=== PATIENT | male | born 1960 | race Caucasian/White ===

== ENCOUNTER 2016-10-29 13:38 | Inpatient (IN) | payer MEDICARE, OTHER ==
[~2016-10-29] VITALS: Ht 177.8 cm; Wt 70.3 kg
[2016-10-30] MEDS ORDERED: TRAM50TA PO (12:09)
[2016-10-30] MEDS ORDERED: HYDR200T3 PO (12:09)
[2016-10-30] MEDS ORDERED: NAPR500T PO (12:10)
[2016-11-06] MEDS ORDERED: ceFAZolin 2 GM PREMIX 50 ML ONE (09:13)
[2016-11-06] MEDS ORDERED: GENTAMICIN SULFATE 80 MG/2 ML VIAL ONE (09:13)
[2016-11-06] MEDS ORDERED: BUPIVACAINE/EPINEPHRINE 0.25% PF 30 ML VIAL ONE (09:13)
[2016-11-06] MEDS ORDERED: VANCOMYCIN HCL 1000 MG VIAL ONE (11:00)
[2016-11-06] MEDS ORDERED: SODIUM CHLOR 0.9% 250 ML INJ 250 ML ONE (11:00)
[2016-11-06 11:15] VITALS: BP 142/94; PULSE 80; RESP 20; TEMP 98.8; O2SAT 96
[2016-11-06] MEDS ORDERED: LACTATED RINGER'S 1000 ML IV SCH (11:45)
[2016-11-06] MEDS ORDERED: SODIUM CHLORID 0.9% 500 ML IV SCH (11:45)
[2016-11-06] MEDS ORDERED: INSULIN HUMAN REGULAR 1,000 UNITS/10 ML VIAL SQ PRN (11:45)
[2016-11-06] MEDS ORDERED: METOPROLOL TARTRATE 25 MG TAB PO PRN (11:45)
[2016-11-06] MEDS ORDERED: PROPOFOL 200 MG/20 ML AMP IV ONE (12:00)
[2016-11-06] MEDS ORDERED: PHENYLEPH/NS 1000 MCG/10 ML SYR IV ONE (12:00)
[2016-11-06] MEDS ORDERED: LACTATED RINGER'S 1000 ML INJ 1,000 ML IV ONE (12:00)
[2016-11-06] MEDS ORDERED: ONDANSETRON HCL 4 MG/2 ML VIAL IV PUSH ONE (12:00)
[2016-11-06] MEDS ORDERED: ePHEDrine/NS 25 MG/5 ML SYR IV ONE (12:00)
[2016-11-06] MEDS ORDERED: ACETAMINOPHEN 1000 MG/100 ML VIAL IV ONE (12:01)
[2016-11-06] MEDS ORDERED: FAMOTIDINE 20 MG/2 ML VIAL ONE (12:01)
[2016-11-06] MEDS ORDERED: fentaNYL CITRATE 250 MCG/5 ML AMP ONE ×2 (12:01→13:27)
[2016-11-06] MEDS ORDERED: MIDAZOLAM HCL 2 MG/2 ML VIAL ONE (12:02)
[2016-11-06] MEDS ORDERED: KETAMINE HCL 500 MG/5 ML VIAL ONE (12:02)
[2016-11-06] MEDS ORDERED: DEXAMETHASONE SOD PHOS 4 MG/ML VIAL ONE (12:02)
[2016-11-06] MEDS ORDERED: HYDROmorphone HCL PF 2 MG/ML VIAL ONE (13:27)
[2016-11-06] MEDS ORDERED: LACTATED RINGER'S 1000 ML INJ 1,000 ML IV SCH (14:05)
[2016-11-06] MEDS ORDERED: ALUMINUM/MAGNESIUM/SIMETH 30 ML CUP PO PRN ×2 (14:15→17:00)
[2016-11-06] MEDS ORDERED: SODIUM CHLORIDE 0.9% FLUSH 5 ML FLUSH IVF PRN ×2 (14:15→17:00)
[2016-11-06] MEDS ORDERED: NALOXONE HCL 0.4 MG/ML AMP IV PRN ×2 (14:15→17:00)
[2016-11-06] MEDS ORDERED: SODIUM CHLORIDE 0.9% FLUSH 5 ML FLUSH IVF SCH (14:15)
[2016-11-06] MEDS ORDERED: ACETAMINOPHEN/HYDROcodone 325 MG/5 MG TAB PO PRN ×2 (14:15)
[2016-11-06] MEDS ORDERED: PROMETHAZINE INJ 25 MG/ML VIAL IM PRN ×2 (14:15→17:00)
[2016-11-06] MEDS ORDERED: ONDANSETRON HCL 4 MG/2 ML VIAL IV PRN ×2 (14:15→17:00)
[2016-11-06] MEDS ORDERED: MORPHINE SULFATE 4 MG/ML INJ IV PUSH PRN ×2 (14:15→17:00)
[2016-11-06] MEDS ORDERED: Post-op Orders (for Pharmacy) MISC XX ONE ×2 (14:15→17:00)
[2016-11-06] MEDS ORDERED: ACETAMINOPHEN/HYDROcodone 325 MG/7.5 MG TAB PO PRN (17:00)
--- NOTE | 2016-11-06 17:10 | HHI.PR ---
Immediate Post Op Note Procedure Date: Nov 06, 2016 Pre Op Diagnosis: C4-5 ODC,SS; C5-6 ODC,SS,SCE; C6-7 ODC,SS CM with mick UE weakness DDD,OA Post Op Diagnosis: Same Surgeon: Carlos Baptiste MD Structural Steel Shop Supervisor(s): Germania Hudson PA-C Procedure: C4-5,C5-6,C6-7 AIF,ACC,ASI Complications: None Specimen(s) removed: None Estimated blood loss: 250cc for entire case Anesthesia: General Patient to: PACU Patient Condition: Good Implant/Devices: SEE IMPLANT LOG (if applicable) Carlos Baptiste MD Nov 06, 2016 17:10
[2016-11-06] MEDS ORDERED: DO NOT ADM ANY ANTICOAGULANT DRUGS XX PRN (17:13)
--- NOTE | 2016-11-06 17:22 | PD.OP ---
cc: Carlos Baptiste MD; Lorenzo Baptiste MD Operative Report Date of Surgery: Nov 06, 2016 Preoperative Diagnosis: Osteophyte disc complex C3 4 5, C5 6, C6 7. Cervical spinal stenosis C5 6 and C6 7. 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 Cervical radiculopathy, bilateral, right greater than left. Postoperative Diagnosis: Same Procedure: Anterocervical discectomy decompression and bilateral foraminotomies, C4 5. Anterior cervical discectomy decompression and bilateral foraminotomies, C5 6. Anterior cervical discectomy decompression and bilateral foraminotomy, C6 7. Left anterior iliac crest bone graft Anesthesia: Gen. Surgeon: Lorenzo Baptiste Project Development Manager(s): MIKEY Mendoza Operation and Findings: EBL: 100 cc INDICATIONS: Patient is a 56-year-old male with significant neck and arm pain. Investigative studies shows evidence of myelopathic features. There is evidence of OPLL at C5 6 and C6 7 with ossification of either the posterior longitudinal ligament or a disc herniation or both. The patient has a significant bilateral foraminal stenosis at both levels. The C4 5 level is not as involved but there is an instability at that level associated with an osteophyte disc complex. This patient despite conservative care has. This patient now presents for surgical treatment NOTE: Should MIKEY Mendoza was present for the entire surgical procedure as my presser first. In my medical opinion her skill and care was necessary for proper management of this patient PROCEDURE: The patient was brought to the operating room and anesthetized in the supine position. This patient was positioned supine on the radiolucent table. All pressure points were protected in the anterior cervical spine and iliac crest was scrubbed with alcohol followed by Hibiclens followed by ChloraPrep. A timeout was done and antibiotics were given within 1 hour time window. Lateral radiographic images were used identifying the proper level. A right anterior incision was made in line with skin creases. The platysma was opened in line with the incision. Deep dissection continued in the interval between the carotid sheath and the esophagus. The longus-coli muscles were lifted on both sides and retractors were positioned allowing good exposure. Lateral radiographic images were used to identify the proper level. [place] style interosseous pins were placed at C4 and 5 allowing exposure to that level. The microscope was rolled into the field. A total discectomy was accomplished and posterior osteophytes were removed. The posterior longitudinal ligament and annulus was taken down. Bilateral foraminotomies were accomplished. The endplates were squared up anticipating later bone grafting. A blunt probe could be placed out each foramen without evidence of nerve root compromise. The C4 pin was placed down to C6. An anterior exposure was accomplished. We performed a total discectomy with excision of the posterior annulus and posterior longitudinal ligament. Bilateral foraminotomies were accomplished. Osteophytes were removed. The endplates were squared up anticipating later bone grafting. A blunt probe could be placed out each foramen without evidence of nerve root compromise. The C5 pin was placed down to C7. An anterior exposure was accomplished. We performed a total discectomy with excision of the posterior annulus and posterior longitudinal ligament. Bilateral foraminotomies were accomplished. Osteophytes were removed. The endplates were squared up anticipating later bone grafting. A blunt probe could be placed out each foramen without evidence of nerve root compromise. The left iliac crest was approached. A small stab incision was made allowing percutaneous access to the anterior iliac crest. Multiple cores of cancellous bone were harvested and taken to the back table to be used for later bone grafting. The wound was irrigated anesthetized and closed with 4-0 Vicryl followed by Dermabond. The case was turned over to Dr. Carlos Baptiste for fusion and instrumentation per his dictation. FINDINGS: There was evidence of a significant osteophyte disc complex at C4 5. Bilateral foraminal stenosis was noted. At C5 6 there was significant ossification more to the right than to the left with evidence of either a calcified disc herniation or that in combination with OPLL. This created a high -grade stenosis within the canal and foraminal stenosis. At the C6 7 level there very similar finding was noted. It was not as severe. At the end of the procedure, each level was decompressed nicely and a blunt probe could be placed out each foramen without evidence of nerve root compromise NOTE: This surgery was performed in 2 parts. The first part was the neurosurgical decompression performed under the variable power stereo microscope by the undersigned in addition to the bone graft. The second portion of the surgery will be performed by the orthopedic spine component by co -surgeon, Dr. Carlos Baptiste for the anterior fusion with interbody cage and anterior plate. The skill of 2 surgeons was necessary to perform distinct separate procedural services as dictated above and dictated in the following operative note by Dr. Carlos Baptiste. Lorenzo Baptiste MD Nov 06, 2016 17:22
[2016-11-06] MEDS: LACTATED RINGER'S 1000 ML INJ 1,000 ML IV SCH (17:32)
--- NOTE | 2016-11-06 17:40 | RADRPT ---
EXAM DATE/TIME: 11/06/2016 16:18 [facility] COMPARISON: No previous studies available for comparison. INDICATIONS : Neck pain MEDICAL HISTORY : None. SURGICAL HISTORY : None. ENCOUNTER: Initial ACUITY: 1 day PAIN SCORE: Non-responsive. LOCATION: C- spine FINDINGS: Two projection examination was performed. The patient had an anterior cervical fusion from what appea rs to be C4-C7. On the AP film the plate appears to be within midline CONCLUSION: Multilevel cervical fusion as described above Toney Lepe MD on November 06, 2016 at 17:37 Board Certified Radiologist. This report was verified electronically.
[2016-11-06] MEDS: HYDROXYCHLOROQUINE SULFATE 200 MG TAB PO SCH (18:00)
[2016-11-06 20:00] VITALS: BP 141/91; PULSE 97; RESP 18; TEMP 98.6; O2SAT 95
[2016-11-06] MEDS ORDERED: ZOLPIDEM TARTRATE 5 MG TAB PO PRN ×2 (21:00)
[2016-11-06] MEDS: SODIUM CHLORIDE 0.9% FLUSH 5 ML FLUSH IVF SCH (21:54)
[2016-11-06] MEDS: ACETAMINOPHEN/HYDROcodone 325 MG/7.5 MG TAB PO PRN (23:43)
[2016-11-07] VITALS: BP 148/92; PULSE 96; RESP 20; TEMP 98.3; O2SAT 98
[2016-11-07 03:59] VITALS: BP 171/79; PULSE 84; RESP 18; TEMP 98.3; O2SAT 98
[2016-11-07 04:00] VITALS: BP 178/79; PULSE 84; RESP 18; TEMP 98.3; O2SAT 98
[2016-11-07] MEDS: LACTATED RINGER'S 1000 ML INJ 1,000 ML IV SCH (05:27)
--- NOTE | 2016-11-07 07:07 | PD.ORT.PN ---
Subjective Subjective Remarks pt states he is doing well seen with his pre-op pain is improved, arm pain is improved Objective Vitals Vital Signs Date Time Temp Pulse Resp B/P Pulse Ox O2 Delivery O2 Flow Rate FiO2 11/07/16 03:59 98.3 84 18 171/79 98 11/07/16 00:00 98.3 96 20 148/92 98 11/06/16 20:00 98.6 97 18 141/91 95 11/06/16 18:00 98.0 105 17 140/91 97 Nasal Cannula 2 11/06/16 17:45 99 19 136/79 97 Nasal Cannula 2 11/06/16 17:30 93 13 120/68 95 Nasal Cannula 4 11/06/16 17:15 91 17 112/77 89 Simple Mask 6 11/06/16 17:05 98.2 84 19 135/76 96 Nasal Cannula 2 11/06/16 11:15 98.8 80 20 142/94 96 I/O 11/06/16 11/06/16 11/06/16 11/07/16 11/07/16 11/07/16 07:00 15:00 23:00 07:00 15:00 23:00 Intake Total 2540 ml 480 ml Output Total 1590 ml 1800 ml Balance 950 ml -1320 ml Intake Oral 240 ml 480 ml Other 2300 ml Output Urine Total 900 ml 1800 ml Drainage Total 40 ml 0 ml Estimated Blood Loss 300 ml Other 350 ml # Bowel Movements 0 0 Objective Remarks seen by Dr. Carlos Baptiste Villas collar in place dressing dry and intact motor is +5/5 to UE except right elbow flexion and shoulder abduction 3/5, right wrist dorsiflexion 4/5, left shoulder abduction and elbow flexion 3.5/5, hoffmans improved Assessment & Plan Assessment and Plan POD # 1 s/p C4-7 ACDF Villas collar x 2 months orthopedically stable discharge today norco 7.5mg rx in chart Germania Hudson Nov 07, 2016 07:07
[2016-11-07] MEDS: ACETAMINOPHEN/HYDROcodone 325 MG/7.5 MG TAB PO PRN ×2 (07:41→13:16)
[2016-11-07] MEDS: SODIUM CHLORIDE 0.9% FLUSH 5 ML FLUSH IVF SCH (07:41)
[2016-11-07] MEDS: HYDROXYCHLOROQUINE SULFATE 200 MG TAB PO SCH ×2 (07:41→13:14)
[2016-11-07 08:22] VITALS: BP 128/87; PULSE 82; RESP 16; TEMP 98.5; O2SAT 94
[2016-11-07] MEDS ORDERED: HYDR-3288 PO (08:57)
[2016-11-07] MEDS ORDERED: MULTIVITAMINS/MINERALS THERAPEUTIC TAB PO SCH ×2 (09:00)
[2016-11-07 09:51] VITALS: O2SAT 96
[2016-11-07 12:40] VITALS: BP 112/60; PULSE 70; RESP 16; TEMP 98.1; O2SAT 97
--- NOTE | 2016-11-07 14:12 | MP ---
cc: ALYX MCBRIDE MD DATE OF SURGERY: 11/06/2016 PREOPERATIVE DIAGNOSIS: 1. C4-5 osteophyte disk complex, mild Spondylolisthesis, mild spinal stenosis. 2. C5-6 osteophyte disk complex retrolisthesis, severe spinal stenosis, spinal cord compression, spinal cord edema; C6-7 osteophyte disk complex spinal stenosis, spinal cord compression; no cervical spine, degenerative osteoarthritis. 3. Cervical myelopathy with bilateral upper extremity weakness. POSTOPERATIVE DIAGNOSIS C4-5 osteophyte disk complex, mild Spondylolisthesis, mild spinal stenosis. C5-6 osteophyte disk complex retrolisthesis, severe spinal stenosis, spinal cord compression, spinal cord edema; C6-7 osteophyte disk complex spinal stenosis, spinal cord compression; no cervical spine, degenerative osteoarthritis. Cervical myelopathy with bilateral upper extremity weakness. PROCEDURE: C4-5, C5-6, C6-7 interbody fusion; C4-5, C5-6, C6 7- Spinet Rauscher anterior spinal instrumentation C4-5, C5-6. C6-C7 Spinet ACC anterior cervical cage; C4-C7 spinet Rauscher anterior spinal rotation. SURGEON Joshua Baptiste MD JUNIOR PROJECT COORDINATOR: SILVAI Church SPECIMENS None. ESTIMATED BLOOD LOSS: 250 cc for entire case. COMPLICATIONS None ANESTHESIA General. DRAINS: One. CONDITION: The condition is stable. PLAN OF ACTIVITY: Per orders. PROCEDURE : Dr. Lorenzo Baptiste and myself were cosurgeons. Dr. Lorenzo Baptiste performed the neuro decompression portion of procedure at C4-C5, C5-C6, C6-C7. He performed, using operative microscope, anterior cervical diskectomy anterior decompression foraminotomies at all three levels. He also performed left anterior iliac crest bone grafting. I was not present for his portion of the procedure. I performed the orthopedic fusion and stabilization of the spine. Which is well-described in my operative procedure as cosurgeon. My product development assistant SILVIA Church was present for the entire surgical case. She was medically necessary for entire case because of the complexity case and to facilitate the performance of procedure. The ORDER MANAGEMENT SPECIALIST at back table not a skill set for this case manipulate the instruments e.g. the multiple different types of soft tissue retractors, trial implants and permanent implants. The end plates at that C6-7 were prepared for fusion. The hyaline cartilage end plates were removed using angled curettes and burs. The a 6, 10 x 12 ACC cage placed interspace. Anterior iliac crest autogenous bone graft used under fluoroscopic guidance for interbody fusion. C5-6, the end plates were removed using angled curettes and burs. A 6, 10 x 12 ACC cage was placed interspace. The anterior iliac crest bone grafting was used under fluoroscopic guidance for interbody fusion. The end plates at C4-5 were prepared for fusion. The hyaline cartilage endplate were removed angled curettes and burs. A 6, 10 x 12 ACC cage placed interspace. Anterior iliac crest bone graft used under fluoroscopic guidance for interbody fusion. The anterior osteophytes were then removed using multiple different types of angled curettes and rongeurs and a bur. Anterior spinal rotation was used. A 63 mm spinet Rauscher plate was contoured the patient's normal cervical lordosis. A single temporary screw was used. AP and lateral imaging was used to confirmed satisfactory position of the anterior spinal instrumentation. Two screws were used for the vertebral body at C4, C5, C6 and C7. These screws were 14 mm in length, 4.0 mm diameter, fixed angle screws. Each screw head appropriately locked to the plate. Intraoperative fluoroscopy AP lateral plane confirmed satisfactory bone grafts at C4-5, C5-C6, C6-C7, Satisfactory position of the ACC cages at C4-5, C5-6, C6-7 and satisfactory position of the anterior spinal instrumentation from C4 to C7. There was some difficulty imaging laterally because the patient's large thick shoulders and body habitus. The wound was irrigated with copious amounts of sterile saline, antibiotic solution was dry. The wound was closed over a 10-Tamazight Joce drain. Wound was closed in multiple layers using 3-0 Vicryl suture. Skin approximated with running subcuticular 3-0 Vicryl suture. Dermabond placed over this skin incision. Sterile dressings were applied. The patient placed in [place] cervical orthosis. The patient tolerated the procedure well and arrived in the Recovery Room in stable and satisfactory condition. MD CHING Nina/eldon /5:00 PM /12:01 PM
== END 2016-11-07 14:57 | disposition home or self-care (01) | DRG 471 ==
LOC: HSDI 11-06 10:28 → EDUNIT# 11-06 11:45 → EDSTATUS 11-06 11:45 → N06A 11-06 18:18
PROVIDERS: ADMIT Orthopaedic Surgery Orthopaedic Surgery of the Spine; ATTEND Orthopaedic Surgery Orthopaedic Surgery of the Spine
PROC: 0RT30ZZ Resection of Cervical Vertebral Disc, Open Approach (ICD-10-PCS; 2016-11-06)
PROC: 0QB30ZZ Excision of Left Pelvic Bone, Open Approach (ICD-10-PCS; 2016-11-06)
PROC: 0RG20A0 Fusion of 2 or more Cervical Vertebral Joints with Interbody Fusion Device, Anterior Approach, Anterior Column, Open Approach (ICD-10-PCS; principal; 2016-11-06 12:11)
DX: M50.021 Cervical disc disorder at C4-C5 level with myelopathy (principal); G95.19 Other vascular myelopathies; M47.12 Other spondylosis with myelopathy, cervical region; M25.78 Osteophyte, vertebrae; M50.022 Cervical disc disorder at C5-C6 level with myelopathy; M50.023 Cervical disc disorder at C6-C7 level with myelopathy; M48.02 Spinal stenosis, cervical region; M43.12 Spondylolisthesis, cervical region; M50.121 Cervical disc disorder at C4-C5 level with radiculopathy; M50.122 Cervical disc disorder at C5-C6 level with radiculopathy; M50.123 Cervical disc disorder at C6-C7 level with radiculopathy
CPT/HCPCS: 72040; 76000; 94150; C1713; J0131; J0690; J1100; J1170; J1580; J2250; J2270; J2370; J2405; J3010; J3370; J7050; J7120; L0150

== ENCOUNTER → 2016-10-30 | Outpatient (CLI) | payer MEDICARE, OTHER ==
[~2016-10-30] MED LIST: HYDR-3288 PO; HYDR-3580 PO; HYDR200T3 PO; NAPR500T PO; TRAM50TA PO
[2016-10-30 11:57] LABS: AUTOMATED NEUTROPHIL # 5.6 TH/MM3 (1.8-7.7); BASOPHIL % 0.5 % (0.0-2.0); EOSINOPHIL # 0.3 TH/MM3 (0-0.4); EOSINOPHIL % 3.6 % (0.0-4.0); HEMATOCRIT 41.3 % (39.0-51.0); HEMO FLAGS DIFF FINAL; LYMPH % 18.6 % (9.0-44.0); LYMPHOCYTE # 1.6 TH/MM3 (1.0-4.8); MEAN CELL VOLUME 87.4 FL (80.0-100.0); MEAN CORPUSCULAR HEMOGLOBIN 30.4 PG (27.0-34.0); MEAN CORPUSCULAR HGB CONC 34.8 % (32.0-36.0); MONO % 10.6 % (0.0-8.0); NEUT % 66.7 % (16.0-70.0); PLATELET COUNT 221 TH/MM3 (150-450); RED BLOOD COUNT 4.72 MIL/MM3 (4.50-5.90); RED CELL DISTRIBUTION WIDTH 13.4 % (11.6-17.2); WHITE BLOOD COUNT 8.5 TH/MM3 (4.0-11.0)
[2016-10-30 12:37] LABS: POTASSIUM 3.7 MEQ/L (3.5-5.1)
--- NOTE | 2016-10-31 17:16 | EKG ---
Date Performed: 10/30/2016 Time Performed: 11:42:05 PTAGE: 56 years EKG: Sinus rhythm WITH FIRST DEGREE AV BLOCK POSSIBLE RIGHT ATRIAL ENLARGEMENT INDETERMINATE AXIS ABNORMAL ECG NO PREVIOUS TRACING DOCTOR: Kortney Angulo Interpretating Date/Time 10/31/2016 17:14:39
== END ==
LOC: CPRE 11:11
PROVIDERS: ATTEND Orthopaedic Surgery Orthopaedic Surgery of the Spine
DX: Z01.810 Encounter for preprocedural cardiovascular examination (principal); Z01.812 Encounter for preprocedural laboratory examination; Z01.818 Encounter for other preprocedural examination; M50.321 Other cervical disc degeneration at C4-C5 level; M50.322 Other cervical disc degeneration at C5-C6 level
CPT/HCPCS: 36415; 80048; 85025; 93005

== ENCOUNTER 2016-11-18 08:19 | Inpatient (IN) | payer MEDICARE, OTHER ==
[~2016-11-18] VITALS: Ht 177.8 cm; Wt 94.8 kg
[~2016-11-18 08:19] MED LIST changes: -HYDR-3580 PO; -NAPR500T PO; -TRAM50TA PO
--- NOTE | 2016-11-25 05:28 | MH ---
cc: MARYAM LOTT M.D. DATE OF ADMISSION: 11/25/2016 ADMISSION DIAGNOSIS Cervical spinal stenosis. HISTORY This is a 56-year male with significant neck, shoulder and arm pain. Investigative studies show evidence of spinal stenosis with degenerative changes at C4-5, C5-6 and C6-7. The patient presents for staged posterior cervical fusion. PAST MEDICAL HISTORY, SOCIAL HISTORY, FAMILY HISTORY, REVIEW OF SYSTEMS See attached notes. PHYSICAL EXAMINATION GENERAL: A 56-year-old male in moderate distress with his neck and shoulder. HEENT: Normocephalic, atraumatic. Pupils equal, round, reactive to light and accommodation. Extraocular motions intact. NECK: Supple. CHEST: Clear. HEART: Regular rate and rhythm. ABDOMEN: Soft, nontender with normoactive bowel sounds. MUSCULOSKELETAL EXAMINATION: Cervical spine range of motion shows restricted pain with range of motion. NEUROLOGIC AND VASCULAR EXAMINATION: Within normal limits. IMPRESSION 1. Cervical spinal stenosis. 2. Cervical disk disease. 3. Cervical radiculopathy. PLAN Staged posterior cervical fusion C4-5, C5-6, C6-7, interbody facet cages, iliac crest bone graft. CONSENT There are risks with surgery including infection, bleeding, loss of motion, continued pain, need for further surgery, neurologic and vascular injury. The patient understands these issues and wishes to press on with the surgery as outlined above. MD ABENA Hough/JAZMINE /10:00 PM /5:18 AM
[2016-11-25] MEDS ORDERED: LACTATED RINGER'S 1000 ML IV SCH (07:45)
[2016-11-25] MEDS ORDERED: SODIUM CHLORID 0.9% 500 ML IV SCH (07:45)
[2016-11-25] MEDS ORDERED: INSULIN HUMAN REGULAR 1,000 UNITS/10 ML VIAL SQ PRN (07:45)
[2016-11-25] MEDS ORDERED: METOPROLOL TARTRATE 25 MG TAB PO PRN (07:45)
[2016-11-25 08:02] VITALS: BP 157/98; PULSE 70; RESP 20; TEMP 97.9; O2SAT 97
[2016-11-25] MEDS ORDERED: VANCOMYCIN 1000 MG/NS 250 ML (for <70 kg) IV SCH ×2 (08:15)
[2016-11-25] MEDS ORDERED: ceFAZolin 2 GM PREMIX 50 ML ONE (08:36)
[2016-11-25] MEDS ORDERED: MIDAZOLAM HCL 2 MG/2 ML VIAL ONE (08:44)
[2016-11-25] MEDS ORDERED: FAMOTIDINE 20 MG/2 ML VIAL ONE (08:44)
[2016-11-25] MEDS ORDERED: RESP: ALBUTEROL 2.5 MG/3 ML NEB (PRN) ONE (08:47)
[2016-11-25] MEDS ORDERED: fentaNYL CITRATE 250 MCG/5 ML AMP ONE (08:51)
[2016-11-25] MEDS ORDERED: GENTAMICIN SULFATE 80 MG/2 ML VIAL ONE (09:05)
[2016-11-25] MEDS ORDERED: ePHEDrine/NS 25 MG/5 ML SYR IV ONE (09:17)
[2016-11-25] MEDS ORDERED: LACTATED RINGER'S 1000 ML INJ 2,000 ML IV ONE (09:17)
[2016-11-25] MEDS ORDERED: PROPOFOL 200 MG/20 ML AMP IV ONE (09:17)
[2016-11-25] MEDS ORDERED: GELATIN 12 MM/7 MM FOAM ONE (09:21)
[2016-11-25] MEDS ORDERED: SODIUM CHLORIDE 0.9% FLUSH 5 ML FLUSH IVF PRN (12:00)
[2016-11-25] MEDS ORDERED: Post-op Orders (for Pharmacy) MISC XX ONE (12:00)
[2016-11-25] MEDS ORDERED: ACETAMINOPHEN/HYDROcodone 325 MG/7.5 MG TAB PO PRN (12:00)
[2016-11-25] MEDS ORDERED: BISACODYL 10 MG SUPP PR PRN (12:00)
[2016-11-25] MEDS ORDERED: *MEPERIDINE 25 MG INJ VIAL PERIprocedural Use ONLY ONE (12:08)
[2016-11-25] MEDS ORDERED: *RESP: ALBUTEROL 2.5 MG/3 ML NEB (PRN) PERIprocedural Use ONLY NEB ONE (12:08)
--- NOTE | 2016-11-25 12:09 | PD.OP ---
cc: Lorenzo Baptiste. Operative Report Date of Surgery: Nov 25, 2016 Preoperative Diagnosis: Cervical spinal stenosis. Cervical myelopathy. Myelomalacia cervical spine. Cervical myelopathy. Status post anterior cervical decompression and fusion, C4 to C7, recent Postoperative Diagnosis: Same Procedure: Posterior cervical fusion, C4 5, C5 6, C6 7. Posterior spinal segmental instrumentation C4 5, bilateral, C5 6, bilateral, C6 7, bilateral. Iliac crest bone graft, posterior Anesthesia: Gen. Surgeon: Lorenzo Baptiste Animal Care Worker(s): MIKEY Mendoza Operation and Findings: EBL: 100 cc INDICATIONS: This patient is a 56-year-old male with significant cervical stenosis and cervical myelopathy. He is status post anterior cervical decompression and fusion from C4 to C7. He now presents for 360 fusion with posterior instrumentation, cages and bone graft. NOTE: Andria Mendoza PA-C was present for the entire surgical procedure as my waiter/waitress first class. In my medical opinion her skill and care was necessary for proper management of this patient PROCEDURE: The patient was brought the operating room and anesthetized in the supine position. The patient was positioned prone on a [place]ae table. The arms were placed out along the side and taping was utilized to ensure adequate visualization. AP and lateral radiographic images were used identifying the proper level and allowing excellent exposure for purpose of the cervical fusion. A timeout was done and antibiotics were given within a routine time window. A small incision was made over the left iliac crest bone graft. A series of cores of bone graft were harvested with a special percutaneous device. The bone graft was taken to the back table to be mixed with stem cell bone graft for the later part of the case Using AP and lateral radiographs, skin markings were made. On the right side and 18-gauge spinal needle was placed down to the proper level. The left side a separate incision was made and we used the NicheRAX system. Exposure was afforded down to the proper level. Under visualization, a chisel was placed down to the C 67 level. This was confirmed under radiographs to be in proper position. Exposure was satisfactory. This is placed down into the facet joint at that level. A decorticating device was utilized decorticating the bone of the facet above and below. A retractor was placed down over the access chisel allowing exposure to the joint and exposure to the articular cartilage. A drilling system was utilized removing cartilage and bone this region followed by a rasp. On the back table demineralized bone matrix was mixed with Nucel stem cells and a autogenous bone graft. A combination of both these were then paced placed into proper cages. The cages were impacted into the proper position and checked again under AP and lateral fluoroscopic images. A transfixation screw was placed into the cage having excellent fixation into the facet joint of the level above. The back side of the cage was filled with additional bone graft which was tamped into position. The retractor was removed. On the right side a separate incision was made. Using the likewise sequence of access to the same level, an incision was made allowing visualization for placement of an access chisel which was placed into the joint followed by decortication with excellent visualization. A final retractor was positioned holding this while we were able to drill and use the rasp. The joint was prepared and we created a space for the cage. The cage was filled with bone graft and impacted in proper position. A transfixation screw was fixated at that time and alignment was satisfactory. Additional bone graft placed along the posterior aspect of the cage and the facet joint and was tamped into position. At the C5 6 level, this was repeated in the likewise fashion. A decorticating device was utilized decorticating the bone of the facet above and below. A retractor was placed down over the access chisel allowing exposure to the joint and exposure to the articular cartilage. A drilling system was utilized removing cartilage and bone this region followed by a rasp. On the back table demineralized bone matrix was mixed with Nucel stem cells and a autogenous bone graft. A combination of both these were then paced placed into proper cages. The cages were impacted into the proper position and checked again under AP and lateral fluoroscopic images. A transfixation screw was placed into the cage having excellent fixation into the facet joint of the level above. The back side of the cage was filled with additional bone graft which was tamped into position. The retractor was removed. On the right side this was repeated in the likewise fashion. Using the likewise sequence of access to the same level. An access chisel was placed into the joint followed by decortication with excellent visualization. A final retractor was positioned holding this while we were able to drill and use the rasp. The joint was prepared and we created a space for the cage. The cage was filled with bone graft and impacted in proper position. A transfixation screw was fixated at that time and alignment was satisfactory. Additional bone graft placed along the posterior aspect of the cage and the facet joint and was tamped into position. At the C4 5 level, this was repeated in the likewise fashion. A decorticating device was utilized decorticating the bone of the facet above and below. A retractor was placed down over the access chisel allowing exposure to the joint and exposure to the articular cartilage. A drilling system was utilized removing cartilage and bone this region followed by a rasp. On the back table demineralized bone matrix was mixed with Nucel stem cells and a autogenous bone graft. A combination of both these were then paced placed into proper cages. The cages were impacted into the proper position and checked again under AP and lateral fluoroscopic images. A transfixation screw was placed into the cage having excellent fixation into the facet joint of the level above. The back side of the cage was filled with additional bone graft which was tamped into position. The retractor was removed. On the right side this was repeated in the likewise fashion. Using the likewise sequence of access to the same level. An access chisel was placed into the joint followed by decortication with excellent visualization. A final retractor was positioned holding this while we were able to drill and use the rasp. The joint was prepared and we created a space for the cage. The cage was filled with bone graft and impacted in proper position. A transfixation screw was fixated at that time and alignment was satisfactory. Additional bone graft placed along the posterior aspect of the cage and the facet joint and was tamped into position. Intraoperative x-rays in AP and lateral plane showed excellent positioning and stabilization . The wound was irrigated copiously. Hemostasis was controlled. The fascia was closed with interrupted Vicryl suture skin and subcutaneous tissue with 3-0 Vicryl suture followed by Dermabond. The sponge count needle counts and sponge counts were all correct. The patient tolerated the procedure well as taken to the recovery room in satisfactory condition. FINDINGS: No complication was appreciated. Cage position was satisfactory. The patient tolerated the procedure well. Lorenzo Baptiste MD Nov 25, 2016 12:09
[2016-11-25] MEDS ORDERED: HYDR-3580 PO (12:10)
[2016-11-25] MEDS ORDERED: *LABETALOL HCL 100 MG/20 ML VIAL PERIprocedural Use ONLY ONE (12:12)
[2016-11-25] MEDS ORDERED: *morphine SULFATE 8 MG/ML PERIprocedure ONLY ONE ×3 (12:31→13:02)
[2016-11-25] MEDS: LACTATED RINGER'S 1000 ML INJ 1,000 ML IV SCH (12:55)
[2016-11-25] MEDS: HYDROXYCHLOROQUINE SULFATE 200 MG TAB PO SCH ×2 (13:00→17:22)
[2016-11-25] MEDS ORDERED: DO NOT ADM ANY ANTICOAGULANT DRUGS XX PRN (13:00)
[2016-11-25] MEDS: ONDANSETRON HCL 4 MG/2 ML VIAL IV PRN ×2 (15:17→20:02)
[2016-11-25 17:00] VITALS: BP 153/93; PULSE 83; RESP 16; TEMP 96.8; O2SAT 97
--- NOTE | 2016-11-25 17:16 | RADRPT ---
EXAM DATE/TIME: 11/25/2016 11:47 [facility] COMPARISON: [facility] ([facility]), November 06, 2016, 16:18. INDICATIONS : C4-7 Posterior cervical spine fusion. MEDICAL HISTORY : Hepatitis C. Osteoarthritis. Smoker. SURGICAL HISTORY : C4-7 Anterior cervical spine fusion. ENCOUNTER: Initial ACUITY: 1 day PAIN SCORE: Non-responsive. LOCATION: Cervical spine. FINDINGS: Anterior and posterior cervical spine fusion hardware is noted from C4 through C7. CONCLUSION: Anterior and posterior cervical spine fusion hardware noted from C4 through C7. Bruce Gentile MD on November 25, 2016 at 17:01 Board Certified Radiologist. This report was verified electronically.
[2016-11-25] MEDS: ACETAMINOPHEN/HYDROcodone 325 MG/7.5 MG TAB PO PRN ×2 (17:22→23:12)
[2016-11-25] MEDS: MORPHINE SULFATE 4 MG/ML INJ IV PUSH PRN (20:03)
[2016-11-25 20:29] VITALS: BP 157/95; PULSE 83; RESP 21; TEMP 98; O2SAT 94
[2016-11-26] MEDS: MORPHINE SULFATE 4 MG/ML INJ IV PUSH PRN ×4 (00:13→13:19)
[2016-11-26] MEDS: SODIUM CHLORIDE 0.9% FLUSH 5 ML FLUSH IVF SCH ×2 (00:13→08:29)
[2016-11-26] MEDS: LACTATED RINGER'S 1000 ML INJ 1,000 ML IV SCH ×2 (00:27→12:57)
[2016-11-26 00:33] VITALS: BP 148/99; PULSE 84; RESP 21; TEMP 99.6; O2SAT 96
[2016-11-26 04:29] VITALS: BP 154/85; PULSE 80; RESP 20; TEMP 99.3; O2SAT 95
[2016-11-26] MEDS: ONDANSETRON HCL 4 MG/2 ML VIAL IV PRN (05:37)
[2016-11-26] MEDS: ACETAMINOPHEN/HYDROcodone 325 MG/7.5 MG TAB PO PRN ×2 (05:37→10:29)
[2016-11-26] MEDS: HYDROXYCHLOROQUINE SULFATE 200 MG TAB PO SCH ×2 (08:35→13:18)
[2016-11-26 08:49] VITALS: O2SAT 96
[2016-11-26] MEDS ORDERED: MULTIVITAMINS/MINERALS THERAPEUTIC TAB PO SCH (09:00)
[2016-11-26] MEDS ORDERED: DOCUSATE SODIUM 100 MG CAP PO SCH (09:00)
[2016-11-26] MEDS ORDERED: INFLUENZA VIRUS VACCINE (QUADRIVALENT) 0.5 ML SYR IM ONE (10:00)
[2016-11-26 12:00] VITALS: BP 164/101; PULSE 77; RESP 20; TEMP 97.9; O2SAT 95
--- NOTE | 2016-11-26 13:19 | PD.ORT.PN ---
Subjective Subjective Remarks Moderate posterior neck pain and headache. Better this morning than last night. No new radiating arm pain. No nausea. Throat 'a little' sore. No other complaints. Ready to go home. Objective Vitals Vital Signs Date Time Temp Pulse Resp B/P Pulse Ox O2 Delivery O2 Flow Rate FiO2 11/26/16 08:49 96 11/26/16 07:15 Room Air 11/26/16 04:29 99.3 80 20 154/85 95 11/26/16 00:33 99.6 84 21 148/99 96 11/25/16 20:29 98.0 83 21 157/95 94 11/25/16 19:21 Room Air 11/25/16 17:00 96.8 83 16 153/93 97 11/25/16 15:55 98.3 75 16 150/85 95 Room Air 11/25/16 15:00 77 16 147/89 94 Room Air 11/25/16 14:00 78 16 145/88 99 Nasal Cannula 3 I/O 11/25/16 11/25/16 11/25/16 11/26/16 11/26/16 11/26/16 07:00 15:00 23:00 07:00 15:00 23:00 Intake Total 1200 ml 1086 ml 480 ml Output Total 50 ml Balance 1200 ml 1036 ml 480 ml Intake Oral 600 ml 480 ml IV Total 486 ml Other 1200 ml Output Urine Total 50 ml # Voids 7 2 # Bowel Movements 0 0 Objective Remarks Sitting up in chair, eating lunch NAD VSS C/S Brace in tact, mild SS drainage posterior dressing, mild spasms traps, +motor brachiorad/triceps, +sens, +nvi Waterworks Chief Engineer intact bilat Assessment & Plan Ortho Post Op Day #: 1 Problem List: Assessment and Plan pod#1 s/p Posterior c/s fusion C4-C7, bone graft Moderate pain but doing well. Ok to d/c home today. No HHC needed. Continue brace for 6 weeks. Avoid NSAIDs Dry dressing changes daily. Ok to shower tomorrow. PO pain meds as needed. F/U in 2 weeks as scheduled. Ania Storey Nov 26, 2016 13:19
--- NOTE | 2016-11-26 13:20 | HHI.DS ---
Discharge Summary Admission Date Nov 25, 2016 at 07:08 Discharge Date: Nov 26, 2016 Admitting Diagnosis see below Diagnosis: (1) Cervical radiculitis Diagnosis: Principal (2) Cervical spinal stenosis Diagnosis: Principal (3) Cervical spine instability Diagnosis: Principal Procedures Posterior cervical fusion C4 to C7, bone graft. Brief History This is a 56 year old male patient with a history of neck and arm pain. He sought out medical treatment when his function began to decline. Imaging studies were performed and he was found to have cervical spinal stenosis at C45 , C56, C67. Conservative measures were pursued for a period of time but he continued to decline. Surgical treatment was eventually recommended in the form of ACDF C4-7. He presents for the above. PE at Discharge Sitting up in chair, eating lunch NAD VSS C/S Brace in tact, mild SS drainage posterior dressing, mild spasms traps, +motor brachiorad/triceps, +sens, +nvi [employer] Work[employer] intact bilat Hospital Course Surgical treatment was performed on the day of admission without complication. He recovered well in PACU and was transferred to the orthopaedic floor. Pain was controlled with IV and oral medications. He was compliant with his cervical brace and all restrictions. After 1 day he was found to be stable and discharged home. He was instructed to continue his pain medication as needed, to pursue a soft high fiber diet for 3-5 days and to continue his cervical brace for an additional 6 weeks. Pt Condition on Discharge: Stable Discharge Disposition: Discharge Home Discharge Instructions Diet Instructions: As Tolerated, No Restrictions, Soft Diet Activities You Can Perform: Weight Bearing as Amador, See Additionl Instruction Activities to Avoid: Strenuous Activity Additional Activity Instruc.: Cervical brace full-time New Medications: Hydrocodone-Acetaminophen (Hydrocodone-Acetaminophen) 7.5-325 mg Tab 1 TAB PO Q4H PRN PAIN SCALE 1 TO 5 #50 TAB Continued Medications: Hydrocodone-Acetaminophen ([place]) 7.5-325 mg Tab 1-2 TAB PO Q6H PRN PAIN #50 Ref 0 TAB Hydroxychloroquine (Hydroxychloroquine) 200 Mg Tab 200 MG PO TID Takw with food #60 Ref 0 TAB Ania Storey Nov 26, 2016 13:20
--- NOTE | 2016-11-26 13:20 | HHI.DCPOC ---
Discharge Care Plan Diagnosis: (1) Cervical radiculitis (2) Cervical spinal stenosis (3) Cervical spine instability Your Health Problems Are: Incision/Drains Goals to Promote Your Health * To prevent worsening of your condition and complications * To maintain your health at the optimal level Directions to Meet Your Goals Take your medications as prescribed Follow your dietary instruction Follow activity as directed Keep your appointments as scheduled Take your immunizations and boosters as scheduled If your symptoms worsen call your PCP, if no PCP go to Urgent Care Center or Emergency Room Smoking is Dangerous to Your Health. Avoid second hand smoke Call the 24-hour hour crisis hotline for domestic abuse at Ania Storey Nov 26, 2016 13:20
== END 2016-11-26 14:58 | disposition home or self-care (01) | DRG 472 ==
LOC: HSDI 11-25 07:08 → N06A 11-25 16:10
PROVIDERS: ADMIT Orthopaedic Surgery Orthopaedic Surgery of the Spine; ATTEND Orthopaedic Surgery Orthopaedic Surgery of the Spine
PROC: 0RG2071 Fusion of 2 or more Cervical Vertebral Joints with Autologous Tissue Substitute, Posterior Approach, Posterior Column, Open Approach (ICD-10-PCS; 2016-11-25)
PROC: 0QB30ZZ Excision of Left Pelvic Bone, Open Approach (ICD-10-PCS; 2016-11-25)
PROC: 0RG20A1 (ICD-10-PCS; principal; 2016-11-25 09:09)
DX: M50.021 Cervical disc disorder at C4-C5 level with myelopathy (principal); G95.89 Other specified diseases of spinal cord; M48.02 Spinal stenosis, cervical region; M53.2X2 Spinal instabilities, cervical region; M50.022 Cervical disc disorder at C5-C6 level with myelopathy; M50.023 Cervical disc disorder at C6-C7 level with myelopathy; M50.121 Cervical disc disorder at C4-C5 level with radiculopathy; M50.122 Cervical disc disorder at C5-C6 level with radiculopathy; M50.123 Cervical disc disorder at C6-C7 level with radiculopathy; F17.210 Nicotine dependence, cigarettes, uncomplicated
CPT/HCPCS: 72040; 76000; 94150; 94640; 94664; C1713; J0690; J1580; J2175; J2250; J2270; J2405; J3010; J3370; J7050; J7120; J7613; L0150